=== PATIENT | female | born 1980 | race Caucasian/White ===

== ENCOUNTER 2016-06-21 09:39 | Emergency (ER) | payer OTHER ==
[2016-06-21] MEDS ORDERED: LORazepam 2 MG/ML DISP.SYRIN IV ONE (09:59)
--- NOTE | 2016-06-21 10:15 | ERNOTE ---
Neuro HPI ER Record Date of Service: 06/21/16 Presenting Symptoms: other Time Seen by Provider: 06/21/16 09:55 Source: EMS Exam Limitations: clinical condition Immunizations: IMMUNIZATION HX Immunizations Up to Date Yes History of Influenza Vaccine More Information Required Hx Pneumococcal Vaccination No Allergies/Adverse Reactions: Allergies Allergy/AdvReac Type Severity Reaction Status Date / Time fish oil Allergy Verified 06/21/16 10:01 ketorolac tromethamine Allergy Itching Verified 06/21/16 10:01 [From Toradol] topiramate [From Topamax] AdvReac Mild BLACK Verified 06/21/16 10:01 SPOTS SEEN tramadol AdvReac Mild RASH Verified 06/21/16 10:01 metoclopramide HCl AdvReac Other Verified 06/21/16 10:01 [From Reglan] omega 3 AdvReac Mild Itching Uncoded 06/21/16 10:01 Home Medications: HOME MEDICATIONS Levothyroxine Sodium [Synthroid] 125 mcg PO DAILY 12/05/14 [Last Taken 12/05/14 09:00] Ondansetron [Zofran Odt] 4 mg PO Q6H PRN #20 tab 10/03/15 [Last Taken Unknown] Albuterol Sulfate [Ventolin Hfa] 2 puff IH Q4H PRN 02/27/16 [Last Taken Unknown] Fluticasone Propionate [Flovent Hfa] 110 mcg IH BID 02/27/16 [Last Taken Unknown ] clonazePAM [Klonopin] 1 mg PO TID #90 tablet 06/21/16 [Last Taken Unknown] - History of Present Illness Narrative: This is a 35 y/o woman with a [facility] diagnosis of pseudoseizures, and POSSIBLE seizure disorder, who began having spells this morning at work, prompting her arrival by EMS in the [facility] ER, where she continues to have brief spells of altered consciousness and generalized body jerking. She, in her more awake moments, is asking for her bronchodilator inhaler, but her lungs are clear and her O2 sats normal. Onset: sudden onset Severity: moderate Context: other - Character of Deficits New weakness: Present: general (diffuse) Additional Deficits: Present: decrease ability to stand, decrease ability to walk Baseline Cognition: Present: poor alertness Baseline Gait: Present: walks w/o assistance Associated Symptoms: Reports: altered mental status, confused, decreased responsiveness Prior Treament: Reports: recently seen Review of Systems - Review of Systems Constitutional: Present: no symptoms reported - unable to provide - Patient's Past Medical History Patient History - Medical: Chronic Pain, Hypothyroidism, Migraines, Obesity, Seizures - seizures and pseudoseizures Patient History - Cardiac/Respiratory: No pertinent hx Patient History - Cancer: No Hx of Cancer Patient History - Surgical Procedures: Cholecystectomy, , Hysterectomy Patient History - Other: None LMP (Calendar): 08/30/14 - Family History Mother Family History - Medical: Anxiety, Diabetes Type 2, Depression, Renal Disease, Renal Failure Family History - Cardiac/Respiratory: Asthma Father Family History - Cardiac/Respiratory: Myocardial Infarction - Social History Living Situations: home Abuse History: No History of abuse Psych History: Hx of Anxiety Does anyone smoke in the home?: No Smoking Status: Current some day smoker Have you smoked in the past 12 months: Yes Do you dip or chew tobacco: No Initiate information on Smoking Cessation: Yes Alcohol Use: none Drug Use: none - Immunizations Immunizations Up to Date: Yes Hx Pneumococcal Vaccination: No History of Influenza Vaccine: More Information Required to Determine Physical Exam - Physical Exam General Appearance: Present: wd/wn, no apparent distress, other - impaired awakeness Eye Exam: Normal inspection: bilateral, PERRL: bilateral, EOMI: bilateral Ears, Nose, Throat: Present: normal ENT inspection Neck: Present: normal inspection Respiratory: Present: no respiratory distress, normal breath sounds Cardiovascular/Chest: Present: regular rate, rhythm, no murmur Gastrointestinal/Abdominal: Present: normal bowel sounds, nontender, nondistended, soft, no organomegaly Back Exam: Present: normal inspection Extremity Exam: Present: normal inspection, no edema Neurological Exam: Present: disoriented to person, disoriented to time, disoriented to place, disoriented to situation Skin Exam: Present: normal color, warm/dry ED Progress - Vital Signs Patient's Vital Signs:: I have reviewed the patient's vital signs. Vital Signs: Vital Signs 06/21/16 06/21/16 09:42 09:54 Temperature 36.6 C Pulse Rate 68 67 Respiratory 14 16 Rate Blood Pressure 136/90 O2 Sat by Pulse 100 Oximetry - Progress/Reassessment Chief Complaint: Seizure Activity Progress:: Improved Departure Clinical Impression: Pseudoseizures Migraine Qualifiers: Migraine type: without aura Status migrainosus presence: without status migrainosus Intractability: not intractable Qualified Code(s): G43.009 - Migraine without aura, not intractable, without status migrainosus - Departure Disposition: Home self-care Condition: Good Instructions: Nonepileptic Seizures, Migraine Headache, [id number] Additional Instructions: Follow up with Dr. Guadalupe in 1-2 weeks. Tomorrow increase your clonazepam to 1 mg three times daily Prescriptions: clonazePAM [Klonopin] 1 mg PO TID #90 tablet
[2016-06-21] MEDS ORDERED: LORazepam 2 MG/ML DISP.SYRIN ONE (10:29)
[2016-06-21] MEDS ORDERED: ONDANSETRON HCL/PF 2 MG/ML VIAL IV ONE (10:41)
[2016-06-21] MEDS ORDERED: ONDANSETRON HCL/PF 2 MG/ML VIAL ONE (10:42)
[2016-06-21] MEDS ORDERED: diphenhydrAMINE HCL 50 MG/ML VIAL IV ONE (11:10)
[2016-06-21] MEDS ORDERED: PROMETHAZINE HCL 25 MG in DEXTROSE 5 % IN WATER 50 ML IV ONE ×2 (11:10)
[2016-06-21] MEDS ORDERED: METHYLPREDNISOLONE SOD SUCC/PF 40 MG/ML VIAL IV ONE (11:10)
[2016-06-21] MEDS ORDERED: METHYLPREDNISOLONE ACETATE 80 MG/ML VIAL ONE (11:14)
[2016-06-21] MEDS ORDERED: diphenhydrAMINE HCL 50 MG/ML VIAL ONE (11:15)
[2016-06-21] MEDS ORDERED: METHYLPREDNISOLONE SOD SUCC/PF 40 MG/ML VIAL ONE (11:26)
[2016-06-21 12:58] VITALS: BP 133/83
== END 2016-06-21 12:56 | disposition home or self-care (01) ==
LOC: ER 09:39
DX: F44.5 Conversion disorder with seizures or convulsions (principal); G43.009 Migraine without aura, not intractable, without status migrainosus; F17.210 Nicotine dependence, cigarettes, uncomplicated

== ENCOUNTER 2016-06-23 09:47 | Emergency (ER) | payer OTHER ==
--- NOTE | 2016-06-23 10:28 | ERNOTE ---
Headache ER HPI - Narrative Date of Service: 06/21/16 - General Presenting Symptoms: headache Time Seen by Provider: 06/23/16 10:11 Source: patient, family - spouse Exam Limitations: no limitations - states took oxycodone at midnight for chronic back pain no other medications - Immun/Allergies/Home Medications Immunizations: IMMUNIZATION HX Immunizations Up to Date Yes History of Influenza Vaccine More Information Required Hx Pneumococcal Vaccination No Allergies/Adverse Reactions: Allergies fish oil Allergy (Verified 06/23/16 09:56) ketorolac tromethamine [From Toradol] Allergy (Verified 06/23/16 09:56) Itching topiramate [From Topamax] Adverse Reaction (Mild, Verified 06/23/16 09:56) BLACK SPOTS SEEN tramadol Adverse Reaction (Mild, Verified 06/23/16 09:56) RASH metoclopramide HCl [From Reglan] Adverse Reaction (Verified 06/23/16 09:56) Other omega 3 Adverse Reaction (Mild, Uncoded 06/23/16 09:56) Itching Home Medications: HOME MEDICATIONS Levothyroxine Sodium [Synthroid] 125 mcg PO DAILY 12/05/14 [Last Taken 12/05/14 09:00] Ondansetron [Zofran Odt] 4 mg PO Q6H PRN #20 tab 10/03/15 [Last Taken Unknown] Albuterol Sulfate [Ventolin Hfa] 2 puff IH Q4H PRN 02/27/16 [Last Taken Unknown] Fluticasone Propionate [Flovent Hfa] 110 mcg IH BID 02/27/16 [Last Taken Unknown ] clonazePAM [Klonopin] 1 mg PO TID #90 tablet 06/21/16 [Last Taken Unknown] - Pain Pain Score: 10 - History of Present Illness Narrative: Patient presents with acute on chronic headache, started shortly after seizure on Sat night, this has not gone away despite the clonezepam and oxycodone she has for headache, no associated vision changes, + nausea and feels very tired, walking from appt to parents house fell outside, no trauma to head and loc. Date (Duration): 06/21/16 Time (Timing): 23:55 Activity at onset: other - started after seizure on sat noc Timing of Headache: abrupt, still present Context Headache: Present: other - no head injury, fall but no loc on thursday Quality: Present: pressure Severity Maximum: Present: severe Severity-Currently: Present: severe Headache frequency: Present: frequent headaches Modifying Factors - (Improves): Reports: medication, other - states usually gets shot from PCP Modifying Factors - (Worsens): Reports: other - seizures, patient is diagnosed as having pseudoseizures treated with clonazepam per PCP Associated Symptoms: Reports: denies symptoms Exacerbated by:: Reports: movement Prior Treament: Reports: treated by physician - seen in ED on Sat by her pcp for seizure, here via EMS Review of Systems - Narrative Narrative: Patient seen in ED over this past weekend with recurrent pseudoseizures. - Review of Systems Constitutional: Present: See HPI, fatigue EYE: Present: no symptoms reported ENT: Present: no symptoms reported Respiratory: Present: no symptoms reported Cardiology: Present: no symptoms reported Gastrointestinal/Abdominal: Present: nausea, eating less Genitourinary: Present: no symptoms reported Musculoskeletal: Present: back pain - chronic low back pain, no paresthesia no change from chronic symptoms today Neurological: Present: headache Endocrine: Present: no symptoms reported, other - hx of hypothyroidism Psych: Present: anxiety, emotional problems, other - pseudoseizure per Neurologic evaluation - Narrative Narrative: past medical, family and social history reviewed, as well as medications and confirmed last doses. - Patient's Past Medical History Patient History - Medical: Chronic Pain, Hypothyroidism, Migraines, Obesity, Seizures Patient History - Cardiac/Respiratory: No pertinent hx Patient History - Cancer: No Hx of Cancer Patient History - Surgical Procedures: Cholecystectomy, , Hysterectomy Patient History - Other: None LMP (Calendar): 08/30/14 - Family History Mother Family History - Medical: Anxiety, Diabetes Type 2, Depression, Renal Disease, Renal Failure Family History - Cardiac/Respiratory: Asthma Father Family History - Cardiac/Respiratory: Myocardial Infarction - Social History Living Situations: home Abuse History: No History of abuse Psych History: Hx of Anxiety Does anyone smoke in the home?: No Alcohol Use: none Drug Use: none - Immunizations Immunizations Up to Date: Yes Hx Pneumococcal Vaccination: No History of Influenza Vaccine: More Information Required to Determine Physical Exam - Physical Exam General Appearance: Present: wd/wn, no apparent distress, lethargic Eye Exam: Normal inspection: bilateral, PERRL: bilateral - 3mm , EOMI: bilateral , Abnormal pupil: bilateral - constricted pupil , Photophobia: bilateral Ears, Nose, Throat: Present: normal ENT inspection, hearing grossly normal, normal pharynx Neck: Present: normal inspection, nontender, supple, full range of motion. Absent: lymphadenopathy (L) Respiratory: Present: no respiratory distress, normal breath sounds, no accessory muscle use, chest nontender, lungs clear Cardiovascular/Chest: Present: regular rate, rhythm, no murmur, normal peripheral pulses Peripheral Pulses: N=norm/S=strong/W=weak/B=bound/A=absent: Carotid (R): Normal , Carotid (L): Normal Gastrointestinal/Abdominal: Present: normal bowel sounds, nontender, nondistended, soft, no organomegaly Rectal Exam: Present: nontender, deferred Back Exam: Present: normal inspection, normal range of motion, no CVA tenderness , no vertebral tenderness Extremity Exam: Present: normal inspection, non-tender, no edema, normal range of motion Neurological Exam: Present: alert, oriented, normal mood/affect, no motor/ sensory deficits, contact lens manufacturer II-XII nml as tested. Absent: facial droop, motor weakness DTR: N=norm/NB=norm/brisk/A=abs/DD=dull/dimin/HC=hyperactive: Bicep (R): Normal , Bicep (L): Normal, Knee (R): Normal, Knee (L): Normal, Ankle (R): Normal, Ankle (L): Normal Skin Exam: Present: normal color, warm/dry Lymphatic Exam: Present: no adenopathy Pelvic Exam: Present: deferred ED Progress - Date and Time Seen: Date and Time: 06/23/16 13:08 Pain is now a 4 and improved, patient has no nausea, less lethargic, on exam: neck rom intact no stiffness. - Results and Orders Patient's Lab Results:: I have reviewed the patient's lab results. - Vital Signs Patient's Vital Signs:: I have reviewed the patient's vital signs. Vital Signs: Vital Signs 06/23/16 09:52 Temperature 36.6 C Pulse Rate 70 Respiratory 12 Rate Blood Pressure 112/82 O2 Sat by Pulse 97 Oximetry - Progress/Reassessment Chief Complaint: Headache Progress:: Re-examined Progress Note-Subjective: 06/23/16 13:12 tolerating sips of water - Transfer of Care Expected Disposition: Discharge - to home in stable condition Plan - Plan Plan: Patient is getting something to eat orally and stable for discharge. She requested note for work. she has missed 2 days of work. Patient was encouraged to drink more water continue to rest while home today. May return to work Thursday to rehydrate and resolve severe migraine jeong. Departure Clinical Impression: Hypovolemia dehydration Migraine Qualifiers: Migraine type: with aura Status migrainosus presence: with status migrainosus Intractability: not intractable Qualified Code(s): G43.101 - Migraine with aura , not intractable, with status migrainosus - Departure Disposition: Home self-care Condition: Good Instructions: Nausea, Adult, Migraine Headache, [id number], Form - Excuse from Work, School, or Physical Activity Additional Instructions: Excuse from work for illness Thursday 06/22, to Thursday06/24/2015 may return on Thursday Dr. Asher BARILLAS ED Physician Referrals: Salo Gonzales MD [Primary Care Provider] -
[2016-06-23] MEDS ORDERED: FAMOTIDINE 10 MG/ML VIAL IV ONE ×2 (10:30→10:39)
[2016-06-23] MEDS ORDERED: NORMAL SALINE 1,000 ML IV ONE (10:30)
[2016-06-23] MEDS ORDERED: KETOROLAC TROMETHAMINE 30 MG/ML VIAL IV ONE (10:31)
[2016-06-23] MEDS ORDERED: ONDANSETRON HCL/PF 2 MG/ML VIAL IV ONE (10:32)
[2016-06-23] MEDS ORDERED: KETOROLAC TROMETHAMINE 30 MG/ML VIAL ONE (10:38)
[2016-06-23] MEDS ORDERED: ONDANSETRON HCL/PF 2 MG/ML VIAL ONE (10:38)
[2016-06-23 10:50] LABS: Hematocrit 38.2 % (37.0-47.0); Hemoglobin 13.1 gm/dL (12.5-16.0); Mean Cell Volume 83.8 fl (78-100); Mean Corpuscular Hemoglobin 28.7 pg (27-31); Mean Corpuscular Hgb Conc 34.3 g/dl (32-36); Mean Platelet Volume 8.9 fl (6.0-9.5); Neutrophil # 3.6 K/mm3 (1.3-6.0); Neutrophil % 48.8 % (42-75.0); Platelet Count 185 K/mm3 (150-450); Red Blood Count 4.56 M/mm3 (4.2-5.4); Red Cell Distribution Width 12.6 % (11.5-14.0); White Blood Count 7.4 K/mm3 (4.0-10.5)
[2016-06-23 11:03] LABS: Albumin * 3.4 gm/dl (3.4-5.0); Anion Gap 9.8 mmol/L (6.8-13.8); BUN/Creatinine Ratio 22.9 (9.0-21.6); Bilirubin, Total 0.3 mg/dL (0.0-1.1); Ca. Corrected For Albumin 8.8 mg/dL (8.4-10.2); Calcium * 8.6 mg/dL (7.9-10.9); Carbon Dioxide 31.6 mmol/L (24-32.6); Potassium 3.4 mmol/L (3.4-4.6); Total Protein 6.7 gm/dL (6.2-8.2)
[2016-06-23 12:07] LABS: Cocaine Ur Negative (NEGATIVE); Urine Barbiturate Negative (NEGATIVE); Urine PCP Negative (NEGATIVE); Urine THC Negative (NEGATIVE)
[2016-06-23 12:08] LABS: Urine Benzodiazepines Positive (NEGATIVE); Urine Opiates Positive (NEGATIVE)
[2016-06-23 13:26] VITALS: BP 136/72
== END 2016-06-23 13:25 | disposition home or self-care (01) ==
LOC: ER 09:47
DX: E86.1 Hypovolemia (principal); G43.101 Migraine with aura, not intractable, with status migrainosus; E03.9 Hypothyroidism, unspecified; F41.9 Anxiety disorder, unspecified; R56.9 Unspecified convulsions
CPT/HCPCS: 36415; 80053; 85025; 96361; 96374; 96375; 99284; G0479

== ENCOUNTER 2016-09-07 14:49 | Emergency (ER) | payer OTHER ==
[2016-09-07] MEDS ORDERED: LORazepam 2 MG/ML DISP.SYRIN IV ONE ×2 (14:55→15:07)
[2016-09-07] MEDS ORDERED: NORMAL SALINE 1,000 ML IV ONE (14:56)
[2016-09-07] MEDS ORDERED: LORazepam 2 MG/ML DISP.SYRIN ONE (15:04)
--- OUTSIDE RECORDS SUMMARY | 2016-09-07 15:13 | XMS REPORT | Continuity of Care Document ---
:1980 Author Organization [facility] ([facility]) Address [address] [place] [address] Phone [phone] Care Team Providers Name Role Phone Salo Guadalupe Primary Care Provider [phone] Source Comments This disclosure is being made pursuant to the Care Everywhere program, applicable federal and state laws, and may not contain all informaitonavailable regarding this patient.[facility] ([facility]) Active Allergies and Adverse Reactions Allergen Noted Date Severity Reactions Comments Adhesive Tape Angioedema Aspirin Nausea & Vomiting Sealevel-3 Fatty Acids-Fish Oil 11/21/2014 Urticaria (Hives) Topiramate 12/06/2014 Unknown Tramadol 11/21/2014 Pruritus Current Medications Prescription Sig. Disp. Refills Start Date End Date Status levothyroxine 100 mcg Take 100 mcg by Active tablet mouth daily potassium chloride 10 Take 10 mEq by mouth Active mEq XR tablet 2 times daily fluticasone (FLOVENT Use 2 Puffs by Active HFA 110) inhaler inhalation every 12 hours albuterol 90 Use 2 Puffs by Active mcg/Actuation inhaler inhalation every 6 hours as needed OXcarbazepine Take 1.5 Tabs (450 90 Tab 11 11/22/2014 Active (TRILEPTAL) 300 mg mg total) by mouth 2 tablet times daily promethazine 25 mg Take 25 mg by mouth Active tablet every 4 hours as needed ibuprofen PO Take 200 mg by mouth Active every 6 hours as needed furosemide 20 mg tablet Take 20 mg by mouth Active 2 times daily Active Problems Problem Noted Date Morbid obesity 04/16/2015 Spells 01/27/2015 Paroxysmal spells 12/13/2014 Last Assessment & Plan: 03/08/2015 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 NEADs are a type of attack that anyone can have. During these attacks the body is having a very real reaction. NEAD can look like epileptic seizures. The difference is that there is not electrical brain activity during NEADs that is related to epilepsy. Every person may have different symptoms. Common names for NEAD include: psychogenic non-epileptic events, pseudoseizures and psychogenic spells. What causes NEAD? Trauma Stress Anxiety How are NEADs Diagnosed? The most common way to diagnose NEAD is by Video Electroencephalogram (VEEG) monitoring. The patient is hooked up to special equipment. Brain wave activity is recorded as an attack occurs to watch for electrical changes. Epilepsy specialists may also be able to tell what kind of attacks people go through. Sometimes a diagnosis can be made from seeing an attack or from a witnesses description. Home videos or photos of a typical attack can also help with diagnosis. How is NEAD Treated? The current treatment for NEAD is psychological therapy. Specialists trained in treating people experiencing NEAD help you. The purpose of therapy is to help you understand the reasons behind your sym ptoms. The therapists will teach you ways to help you control the attacks. Many people find that their attacks stop or are reduced with therapy. This can be a long process for you. It can take weeks or months before your attacks improve. A Few Facts Women tend to struggle with NEAD more than men. NEAD does not cause damage to the brain. About 80% of people with NEAD have had traumatic experiences in their past. NEAD cannot be cured by anti-epileptic medicine. NEAD episodes are sometimes confused with panic attacks. Many have been told they have a seizure disorder. Some Quick Tips in Managing Non-Epileptic Attack Disorder Make an appointment with a Neuropsychological Rehabilitation Counselor. They can help you identify some possible triggers of your attacks. Helping you find ways to deal with these attacks is important. Learn to get away from the mindset of being out of control. The good news is that you do not have a serious disorder like epilepsy. NEAD can be managed and sometimes even stopped. Believing t he disorder is beyond your control will prolong your struggle with NEAD. Pay attention to your warning signs of NEAD. Many people describe dull headaches, mild dizziness or feeling out of it. Rarely does this type of attack start without warning. Most people ignore the warning signs. Start by paying closer attention to your body and your thoughts. It can help to keep a logbook of the events. Write down how you felt before, during and after an episode. Yo u and your therapist can develop a plan to better manage these attacks. Include these in your logbook: Time and date of the NEAD Warning signs prior to the attack Length of the event Effect (both positive and negative) of the attack Thoughts linked to the attack Anything that shortened, managed or stopped the attack Stay busy. Many people have NEAD when they have down time. Your body and brain has the chance to take over during down time. Keep a to-do list of things that do not cause high anxiety. These can be tasks that you enjoy or other things, such as house chores. Instead of allowing a seizure to proceed, try distracting yourself with a new task. Exercise every day. Get at least 30 minutes of exercise every day. Getting your heart rate up above resting rate is best. It can help to reduce your attacks. Exercise releases endorphins to help yo u reduce anxiety. Endorphins are the feel good chemicals in the brain. Exercise physically tires your body. This helps you get better periods of rest. People who get more rest are able to manage stress and anxiety better. This much exercise may seem very difficult, but it is worth it. Use diaphragmatic breathing. Breathe in through your nose for 8 seconds, then out through the mouth for 8 seconds. This type of breathing uses different parts of the brain to relax the body. Diaphr agmatic breathing should be difficult and slightly uncomfortable. You should use this daily whether you have an attack or not. Use this breathing when you have warning signs of an attack or during an attack. This can help you better control the attack. Grounding techniques can also be helpful for NEAD. Talk to your therapist about ground techniques that may work best for you. Manage your diet. Certain foods and products could increase your anxiety or depress your mood. Caffeine, nicotine and foods high in trans fats or sugar increase anxiety and depression. Make sure yo u eat a healthy diet. Eat foods that are rich in nutrients, such as fruits, vegetables and lean proteins. Stay well hydrated by drinking plenty of water. Manage your mood. Your therapist can help you find ways to deal with your stress levels. Automatic thinking can affect your whole mood. Using relaxing techniques such as progressive muscle relaxati on and visualization can also help. People rarely have NEADs when things are going really well for them. Next Steps: Contact your insurance company. The number is on the back of your insurance card. The insurance company will tell you what treatment options your policy covers. If you have questions please call us: Department of Neurology (8:00 a.m. to 5:00 p.m. Thursday-Thursday) at [phone] After 5:00 p.m., weekends or holidays, call [phone] and ask for the Neurologist plastering contractor. You may also use the 24 hour Toll-free number at . Instruction Status: Reviewed with patient/caregiver and understanding verbalized. Copy provided. As she lives in [place], I have suggested she talk to her PMD about a referral to psychology locally. I have recommended she show NEAD handout to her PMD and the mental health professional I would be happy to treat for possible epilepsy. Also, if a different type of spells appear, I have asked her SO to video-tape and call us. If you have questions please call us: Department of Neurology Epilepsy Program(8:00 a.m. to 5:00 p.m. Thursday-Thursday) at [phone] After 5:00 p.m., weekends or holidays, call [phone] and ask for the Neurologist plastering contractor. You may also use the 24 hour Toll-free number at . Pseudoseizure 12/09/2014 Cognitive disorder 12/08/2014 Overview: Likely chronic Seizure disorder 12/06/2014 Encephalopathy 12/06/2014 Sleep disturbance, unspecified 11/21/2014 Last Assessment & Plan: 11/21/2014 Have discussed possibility of sleep apnea given her sleep disturbance, weight, and possible snoring. Have suggested a sleep study to be done locally. Unspecified epilepsy without mention of intractable epilepsy 01/12/2006 Last Assessment & Plan: 11/21/[address] Servin and I are not able to specify her seizure classification. A 3 day video-EEG was normal. The spells are tooo infrequent to capture on video. 1. Discussed options such as extended release tegretol. Discussed alf side effects of tegretol such as hastening osteoporosis. She is on vitamin D and calcium Discussed trileptal (still risk of osteoporosis) or lamotrgine. Lamotrigine and tegretol have negative interactions. This would not be as severe on trilptal. Could swithch to trileptal and then sunshine otrgine.. Lamotrigine would be started slowly to decrease risk of rash. 2. On tegretol 800 mg per day. The switch to trileptal would be 600 mg twice a day. Will switch to triltal 600 mg twice a day at bedtime. 3. In two weeks if going well start lamotrigine ascension. She will call us and let us know how she is doing of trileptal. She will not drive the remainder of the week as transistioning to trileptal. Lamotrigine would be started as Will need to re-start lamotrigine slowily to avoid Rash Start Morning evening Week 1 25 mg None Week 2 25 mg 25 mg Week 3 50 mg 25 mg Week 4 50 mg 50 mg Week 5 75 mg 50 mg Week 6 75 mg 75 mg Week 7 100 mg 75 mg Week 8 100 mg 100 mg Week 9 150 mg 100 mg Week 10 150 mg 150 mg Continue 150 mg twice day She would stay on trileptal as transistion to lamotrigine. Call us once on lamotrigine 150 mg po bid and we will check serum level As coming off trileptal - no driving. 4. Will \\check tegretol level now (did not take AM dose). Daughter drove If you have questions please call us: Department of Neurology Epilepsy Program(8:00 a.m. to 5:00 p.m. Thursday-Thursday) at [phone] After 5:00 p.m., weekends or holidays, call [phone] and ask for the Neurologist plastering contractor. You may also use the 24 hour Toll-free number at . Social History Tobacco Use Types Packs/Day Years Used Date Current Some Day Smoker Cigarettes Quit: 11/21/2009 Smokeless Tobacco: Never Used Tobacco Cessation:Counseling Given: Yes Comments:1/day Alcohol Use Drinks/Week oz/Week Comments No Last Filed Vital Signs Vital Sign Reading Time Taken Blood Pressure 101/63 04/17/2015 12:26 AM [employer] Pulse 87 04/17/2015 12:26 AM [employer] Temperature 36.9 C (98.4 F) 04/16/2015 8:34 PM [employer] Respiratory Rate 14 04/17/2015 12:26 AM [employer] Height 1.499 m (4' 11.02") 03/08/2015 1:37 PM CDT Weight 89.9 kg (198 lb 3.1 oz) 03/08/2015 1:37 PM CDT Body Mass Index 40.01 03/08/2015 1:37 PM CDT Oxygen Saturation 97% 04/17/2015 12:26 AM [employer] Plan of Care Health Maintenance Due Date Last Done Comments Hepatitis B Vaccine (1 of 3 - Primary Series) 1980 Tdap Vaccine 1989 Lipid Disorder Screening 1996 MMR Vaccine 1996 Td Vaccine 1996 Pneumococcal Vaccine (1 of 1 - PPSV23) 1997 Cervical Cancer Screening 2008 12/31/2001 Influenza Vaccine: Seasonal (#1) 12/17/2015 Results from Last 3 Months Not on file
[2016-09-07 15:17] LABS: Hematocrit 36.8 % (37.0-47.0); Hemoglobin 12.5 gm/dL (12.5-16.0); Mean Corpuscular Hemoglobin 28.5 pg (27-31); Mean Platelet Volume 9.4 fl (6.0-9.5); Neutrophil # 3.5 K/mm3 (1.3-6.0); Neutrophil % 54.6 % (42-75.0); Platelet Count 206 K/mm3 (150-450); Red Blood Count 4.38 M/mm3 (4.2-5.4); Red Cell Distribution Width 13.2 % (11.5-14.0); White Blood Count 6.4 K/mm3 (4.0-10.5)
[2016-09-07 15:33] LABS: Albumin * 4.1 gm/dl (3.4-5.0); Anion Gap 12.6 mmol/L (6.8-13.8); BUN/Creatinine Ratio 16.3 (9.0-21.6); Bilirubin, Total 0.5 mg/dL (0.0-1.1); Ca. Corrected For Albumin 8.4 mg/dL (8.4-10.2); Calcium * 8.8 mg/dL (7.9-10.9); Carbon Dioxide 29.9 mmol/L (24-32.6); Potassium 3.5 mmol/L (3.4-4.6); Total Protein 7.3 gm/dL (6.2-8.2)
[2016-09-07 15:42] LABS: Urine Appearance Clear; Urine Bacteria None Seen; Urine Bilirubin Negative (NEGATIVE); Urine Blood Negative /ul (NEGATIVE); Urine Color Yellow; Urine Ketone Negative (NEGATIVE); Urine Nitrite Negative (NEGATIVE); Urine Protein Negative (NEGATIVE); Urine RBC None Seen /hpf (0-5); Urine Specific Gravity 1.015 SP.GR. (1.005-1.010); Urine Urobilinogen Normal (NORMAL); Urine WBC 0-5 /hpf (0-5)
--- NOTE | 2016-09-07 17:03 | ERNOTE ---
Neuro HPI ER Record Date of Service: 09/07/16 Presenting Symptoms: other - seizure like activity Time Seen by Provider: 09/07/16 14:54 Source: patient, EMS Exam Limitations: no limitations Immunizations: IMMUNIZATION HX Immunizations Up to Date Yes History of Influenza Vaccine More Information Required Hx Pneumococcal Vaccination No Allergies/Adverse Reactions: Allergies Allergy/AdvReac Type Severity Reaction Status Date / Time fish oil Allergy Verified 06/23/16 09:56 ketorolac tromethamine Allergy Itching Verified 06/23/16 09:56 [From Toradol] topiramate [From Topamax] AdvReac Mild BLACK Verified 06/23/16 09:56 SPOTS SEEN tramadol AdvReac Mild RASH Verified 06/23/16 09:56 metoclopramide HCl AdvReac Other Verified 06/23/16 09:56 [From Reglan] omega 3 AdvReac Mild Itching Uncoded 06/23/16 09:56 Home Medications: HOME MEDICATIONS Levothyroxine Sodium [Synthroid] 125 mcg PO DAILY 12/05/14 [Last Taken 12/05/14 09:00] Ondansetron [Zofran Odt] 4 mg PO Q6H PRN #20 tab 10/03/15 [Last Taken Unknown] Albuterol Sulfate [Ventolin Hfa] 2 puff IH Q4H PRN 02/27/16 [Last Taken Unknown] Fluticasone Propionate [Flovent Hfa] 110 mcg IH BID 02/27/16 [Last Taken Unknown ] clonazePAM [Klonopin] 1 mg PO TID #90 tablet 06/21/16 [Last Taken Unknown] - History of Present Illness Narrative: patient presents to the ED from work. She relates that this am she fell in the shower and hit the back of her head. She relates she did not lose consciousness but was dazed. She went to work and had recurrent bouts of seizure-like activity for 30 minutes so EMS was called. EMS noted one bout of this activity en route which resolved spontaneously. She denies focal N/T/W. No CP or SOB. She is seen at [facility] by neurology. Mild neck pain. Onset: intermittent Context: injury - head - Character of Deficits New weakness: Present: other - none Altered sensation: Present: other - none Additional Deficits: Absent: weakness Baseline Cognition: Present: alert, oriented x 4 Associated Symptoms: Denies: fever/chills, chest pain Prior Treament: Denies: recently seen Review of Systems - Review of Systems Constitutional: Absent: fever EYE: Absent: vision changes ENT: Present: no symptoms reported Respiratory: Absent: shortness of breath Cardiology: Absent: chest pain Gastrointestinal/Abdominal: Absent: abdominal pain Genitourinary: Absent: dysuria Musculoskeletal: Present: other - mild neck pain Skin: Present: other - small cut on her lag today from shaving her legs Neurological: Absent: weakness All Other Systems: All systems neg except as marked - Patient's Past Medical History Patient History - Medical: Anxiety, Bipolar, Chronic Pain, Hypothyroidism, Migraines, Obesity, Seizures, Other Patient History - Cardiac/Respiratory: Asthma Patient History - Cancer: No Hx of Cancer Patient History - Surgical Procedures: Cholecystectomy, , D & C, Hysterectomy, Other Patient History - Other: None LMP (females 10-50): other LMP (Calendar): 08/30/14 - Family History Mother Family History - Medical: Anxiety, Diabetes Type 2, Depression, Renal Disease, Renal Failure Family History - Cardiac/Respiratory: Asthma Father Family History - Cardiac/Respiratory: Myocardial Infarction - Social History Living Situations: home Abuse History: No History of abuse Psych History: Hx of Anxiety Does anyone smoke in the home?: No Alcohol Use: none Drug Use: none - Immunizations Immunizations Up to Date: Yes Hx Pneumococcal Vaccination: No History of Influenza Vaccine: More Information Required to Determine Physical Exam - Physical Exam General Appearance: Present: alert, no apparent distress Eye Exam: Normal inspection: bilateral, PERRL: bilateral Ears, Nose, Throat: Present: normal ENT inspection Neck: Present: other - After CT negative, paraspinal muscular tenderness, no localizing point vertebrtal tenderness or suggestion of ligamentous injury, cleared from c-collar after negative CT. Respiratory: Present: no respiratory distress, normal breath sounds Cardiovascular/Chest: Present: regular rate, rhythm Gastrointestinal/Abdominal: Present: normal bowel sounds, nontender, soft. 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 Absent: motor weakness Skin Exam: Absent: skin rash Maben Coma Scale - Assess Eye Opening: Spontaneous Motor: Obeys Commands Verbal: Oriented - Total Coma Scale Total: 15 ED Progress - Results and Orders Patient's Lab Results:: I have reviewed the patient's lab results. - Vital Signs Patient's Vital Signs:: I have reviewed the patient's vital signs. Vital Signs: Vital Signs 09/07/16 09/07/16 09/07/16 14:56 15:15 16:39 Pulse Rate 82 85 89 Respiratory 21 H 21 H 18 Rate Blood Pressure 116/78 123/83 123/85 O2 Sat by Pulse 99 100 94 Oximetry 09/07/16 16:46 Pulse Rate 79 Respiratory 20 Rate Blood Pressure 110/71 O2 Sat by Pulse 97 Oximetry - CT/Ultrasound CT/Ultrasound Narrative: Ct cervical spine and CT head reviewed, radiology report reviewed, negative. - Progress/Reassessment Chief Complaint: Seizure Activity Progress Note-Subjective: 09/07/16 17:01 Ptient had 5 episodes of seizure-like activity. resolved within 1 minute. No acute focal weakness. NIH stroke scale 0. D/E Dr Roldan at [facility], he recommends transfer to [facility] for EEG monitoring. Patient agreeable. No active seizure activity at time of transfer. Departure Clinical Impression: Seizure-like activity - Departure Disposition: [facility] Condition: Stable
[2016-09-07 17:41] VITALS: BP 103/67
== END 2016-09-07 17:48 | disposition short-term general hospital (02) ==
LOC: ER 14:49
DX: R56.9 Unspecified convulsions (principal); W18.2XXA Fall in (into) shower or empty bathtub, initial encounter; Y92.002 Bathroom of unspecified non-institutional (private) residence as the place of occurrence of the external cause

== ENCOUNTER 2016-09-13 13:22 | Emergency (ER) | payer OTHER ==
--- OUTSIDE RECORDS SUMMARY | 2016-09-13 14:05 | XMS REPORT | Continuity of Care Document ---
:1980 Author Organization [facility] ([facility]) Address [address] [place] [address] Phone [phone] Care Team Providers Name Role Phone Salo Guadalupe Primary Care Provider [phone] Source Comments This disclosure is being made pursuant to the Care Everywhere program, applicable federal and state laws, and may not contain all informaitonavailable regarding this patient.[facility] ([facility]) Active Allergies and Adverse Reactions Allergen Noted Date Severity Reactions Comments Adhesive Tape Angioedema Aspirin Nausea & Vomiting [place]-3 Fatty Acids-Fish Oil 11/21/2014 Urticaria (Hives) Topiramate 12/06/2014 Unknown Tramadol 11/21/2014 Pruritus Current Medications Prescription Sig. Disp. Refills Start Date End Date Status levothyroxine 100 Take 100 mcg by Active mcg tablet mouth daily fluticasone (FLOVENT Use 2 Puffs by Active HFA 110) inhaler inhalation every 12 hours albuterol 90 Use 2 Puffs by Active mcg/Actuation inhalation every inhaler 6 hours as needed ibuprofen PO Take 200 mg by Active mouth every 6 hours as needed furosemide 20 mg Take 20 mg by Active tablet mouth 2 times daily potassium chloride Take 10 mEq by 09/08/2016 Discontinued 10 mEq XR tablet mouth 2 times daily OXcarbazepine Take 1.5 Tabs 90 Tab 11 11/22/2014 09/08/2016 Discontinued (TRILEPTAL) 300 mg (450 mg total) tablet by mouth 2 times daily promethazine 25 mg Take 25 mg by 09/08/2016 Discontinued tablet mouth every 4 hours as needed Active Problems Problem Noted Date Morbid obesity [...] (8:00 a.m. to 5:00 p.m. Thursday-Thursday) at [phone] After 5:00 p.m., weekends or holidays, call [phone] and ask for the Neurologist welder production line arc. You may also use the 24 hour Toll-free number at . Instruction Status: Reviewed with patient/caregiver and understanding verbalized. Copy provided. As she lives in [place], I have suggested she talk to her [...] Program(8:00 a.m. to 5:00 p.m. Thursday-Thursday) at [phone] After 5:00 p.m., weekends or holidays, call [phone] and ask for the Neurologist welder production line arc. You may also use the 24 hour Toll-free number at . 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 Discussed usp side effects of tegretol such as hastening [...] Program(8:00 a.m. to 5:00 p.m. Thursday-Thursday) at [phone] After 5:00 p.m., weekends or holidays, call [phone] and ask for the Neurologist welder production line arc. You may also use the 24 hour Toll-free number at . 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 09/09/2016 Telephone Neurology Clementina Rizvi Chief Comp: MD Tata Appointment Info 09/07/2016 - Hospital General Care Ming Roldan Dx: Unspecified 09/08/2016 Encounter Inpatient - Adult MD Otilio epilepsy without mention of intractable epilepsy (Primary Dx) 09/07/2016 Orders/Notes Neurology Ming Roldan MD 09/07/2016 Telephone Neurology Ming Roldan Chief Comp: MD Otilio Consultation Immunizations Name Dates Previously Given Next Due Influenza, PF 02/07/2015 Novel Influenza H1N1 03/20/2009 Td, adsorbed 07/11/2015 Tdap 02/06/2016,02/07/2015,02/02/2011 Social History Tobacco Use Types Packs/Day Years Used Date Current Some Day Smoker Cigarettes Quit: 11/21/2009 Smokeless Tobacco: Never Used Tobacco Cessation:Counseling Given: Yes Comments:1/day Alcohol Use Drinks/Week oz/Week Comments No Last Filed Vital Signs Vital Sign Reading Time Taken Blood Pressure 90/70 09/08/2016 8:06 AM CDT Pulse 56 09/08/2016 8:06 AM CDT Temperature 36.1 C (97 F) 09/08/2016 8:06 AM CDT Respiratory Rate 16 09/08/2016 8:06 AM CDT Height 1.499 m (4' 11") 09/07/2016 7:30 PM CDT Weight 72 kg (158 lb 11.7 oz) 09/07/2016 7:30 PM CDT Body Mass Index 32.04 09/07/2016 7:30 PM CDT Oxygen Saturation 94% 09/08/2016 8:06 AM CDT Plan of Care Health Maintenance Due Date Last Done Comments Hepatitis B Vaccine (1 of 3 1978 - Primary Series) Lipid Disorder Screening 1996 MMR Vaccine 1996 Pneumococcal Vaccine (1 of 1 1997 - PPSV23) Cervical Cancer Screening 2008 12/31/2001 Influenza Vaccine: Seasonal 12/16/2016 02/07/2015 (Season Ended) Td Vaccine 02/05/2026 02/06/2016, Additional history exists 07/11/2015, 02/07/2015 Tdap Vaccine Completed 02/06/2016, 02/07/2015, 02/02/2011 Results from Last 3 Months EMU - VIDEO EEG MONITORING (2BTEP / SFCH L9) (09/09/2016 3:51 PM) Edie Castro MD 09/09/20163:51 PM Video-Electroencephalography (VEEG) Report [facility] Epilepsy Monitoring Unit Requested by Dr. Nieto Procedure Name of study: Inpatient video-EEG Electrodes: Scalp 10-20 Start Date/Time: 09/08/2016 at 01:53 End Date/Time: 09/08/2016 at 1415 History Patient with history of non-epileptic spells who presents after multiple events. Medications Clonazepam, gabapentin, Divalproex Daily Reports Day 1 Interval Change: none Background: The awake background consists of diffuse excess symmetric beta activity without clear posterior alpha frequencies. Symmetric sleep activity is seen. Interictal Discharges: none Events: 2315 - Video event prior to electrode hookup.The patient clinically appears to be sleeping and develops gradual onset of mild whole body shaking but with [id number] head movement and eyes remain closed. Shaking is irregular and at times asynchronous between upper/lower limbs and right vs left, also varying in amplitude and frequency. She is unresponsive to testing. The shaking stops suddenly after 90 seconds.She slowly begins to respond to questions at this time. Stalin Beaulieu Neurology Fellow Staff: Edie Rodriguez MD Summary This continuous video EEG captured a clinical spell of unresponsiveness and irregular body shaking varying site/ampliutde and frequency, prior to EEG leads were placed. However, interictal EEG once leads were on, did not show any epileptiform discharges or focal slowing. Clinical Interpretation No interictal evidence for epilepsy found. Semiology of single clinical event on video suggestive of non-epileptic attack, psychogenic. Edie Rodriguez MD Staff physician, [place] [facility], Department of Neurology, [facility] MICROSCOPIC URINALYSIS (09/08/2016 10:49 AM) Component Value Range White Blood Cells, Urine <1 0-5 /HPF Red Blood Cells, Urine <1 0-2 /HPF Squamous Epithelial Cells, Urine 10 <=10 /LPF Mucous-Urine Rare None, Rare Specimen Urine URINALYSIS WITH REFLEX CULTURE (09/08/2016 10:49 AM) Component Value Range Color, Urine Yellow Straw, Pale Yellow, Yellow, Clear, None Clarity, Urine Clear Clear pH, Urine 5.0 <9.0 Spec [place], Urine 1.015 1.000-1.030 Glucose, Urine Negative Negative Blood, Urine Negative Negative Ketones, Urine Negative Negative Protein, Urine Negative Negative Urobilinogen, Urine Normal Normal Bilirubin, Urine Negative Negative Leukocyte Esterase, Urine Negative Negative Nitrite, Urine Negative Negative Specimen Urine URINALYSIS WITH REFLEXED CULTURE AND MICROSCOPIC EXAM (09/08/2016 10:49 AM) Specimen Culture - Urine, Midstream clean catch Narrative The following orders were created for panel order URINALYSIS WITH REFLEXED CULTURE AND MICROSCOPIC EXAM. Procedure Abnormality Status --------- ------ URINALYSIS WITH REFLEX C...[[id number]]Normal Final result MICROSCOPIC URINALYSIS[[id number]] Normal Final result URINE CULTURE, REFLEXED[[id number]] Please view results for these tests on the individual orders. BASIC METABOLIC PANEL W/ CALCIUM (CHEM 8) (09/08/2016 10:28 AM)Only the most recent of2 resultswithin the time period is included. Component Value Range Sodium 139 135-145 mEq/L Potassium 3.6 3.5-5.0 mEq/L Chloride 104 95-107 mEq/L CO2 26 22-29 mEq/L BUN 14 10-20 mg/dL Creatinine 0.8Comment: 0.5-1.0 mg/dL Creatinine switched to enzymatic method on 09/24/2010.GFR equation switched to IDMS-traceable MDRD equation on 09/24/2010. Calculated GFR values are not valid in clinical settings where serum creatinine is changing. Glucose 86Comment: 65-99 mg/dL The Expert Committee on the Diagnosis and Classification of Diabetes has defined impaired fasting glucose as greater than or equal to 100 mg/dL but less than 126 mg/dL.(Diabetes Care 28 (Suppl 1)S41,2005) Calcium 8.3(L) 8.5-10.5 mg/dL Anion Gap 9 mEq/L Calculated GFR 81 >60 mL/min/1.73 m2 Specimen Blood CBC (COMPLETE BLOOD COUNT) (09/08/2016 10:28 AM)Only the most recent of2 resultswithin the time period is included. Component Value Range WBC Count 5.2 3.7-10.5 K/MM3 RBC Count 4.17 4.00-5.20 M/MM3 Hemoglobin 12.0 11.9-15.5 g/dL Hematocrit 35 35-47 % MCV (Mean Corpuscular Volume) 85 82-99 FL MCH (Mean Corpuscular Hemoglobin) 29 25-35 PG MCHC (Mean Corpuscular Hemoglobin Concentration) 34 32-36 % Platelet Count 172 150-400 K/MM3 MPV (Mean Platelet Volume) 9.9 9.4-12.3 FL RBC Dist Width-STD 41.1 36.4-46.3 FL RBC Distrib Width 13.3 9.0-14.5 % Nucleated RBC 0 /100 WBC Specimen Whole Blood HEPATIC FUNCTION PANEL (09/08/2016 12:17 AM) Component Value Range Albumin 3.8 3.4-4.8 g/dL ALP 48 35-104 U/L Bilirubin Total 0.3 <=1.2 mg/dL Bilirubin, Direct <0.2 0.0-0.2 mg/dL AST 17Comment: 0-32 U/L Adult reference ranges updated on 04/12/13 at 830am ALT 15Comment: 0-33 U/L The upper limit of normal for alanine aminotransferase (ALT) reference ranges for adults is controversial with some authorities recommending limit as low as 30 U/L for males and 19 U/L for females. Th ere is increased incidence of subclinical liver disease (e.g., early steatohepatitis) in patients with ALT values in the range of 31-41 U/L for males and 20-33 U/L for females. ALT values should alway s be interpreted in conjunction with clinical history, physical examination findings, and, if applicable, data from other diagnostic tests. Total Protein 6.1 6.0-8.0 g/dL Specimen Blood CREATINE KINASE (09/08/2016 12:17 AM) Component Value Range Creatine Kinase 50 26-192 U/L Specimen Blood LACTIC ACID, WHOLE BLOOD ([facility]) (09/08/2016 12:17 AM) Component Value Range Lactic Acid, Whole Blood 1.0Comment: 0.5-2.0 mEq/L Glycolate, the principle toxic metabolite of ethylene glycol, can cause artifactual elevation of measured lactate. Specimen Whole Blood VALPROIC ACID DRUG LEVEL (09/08/2016 12:17 AM) Component Value Range Valproic Acid Drug Level 15.2(L)Comment: 50.0-100.0 g/mL Therapeutic Range:50-100 g/mL Toxic:>100 g/mL Specimen Blood OXCARBAZEPINE METABOLITE (09/08/2016 12:17 AM) Component Value Range Oxcarb Metabolite <1(L)Comment: 3-35 ug/mL INTERPRETIVE INFORMATION: Oxcarbazepine Therapeutic range: 3-35 ug/mL. Toxic: Greater than 40 ug/mL This test measures monohydroxyoxcarbazepine (MHD). Adverse effects may include dizziness, fatigue, nausea, headache, somnolence, ataxia and tremor. Performed by [facility], [address] [place] [id number] [email or web address], Darnell Hayden MD, Lab. Director Specimen Blood Narrative Specimen Source: Specimen Start Date:
[2016-09-13 14:07] LABS: Hematocrit 38.7 % (37.0-47.0); Hemoglobin 13.2 gm/dL (12.5-16.0); Mean Cell Volume 83.8 fl (78-100); Mean Corpuscular Hemoglobin 28.6 pg (27-31); Mean Corpuscular Hgb Conc 34.1 g/dl (32-36); Mean Platelet Volume 9.6 fl (6.0-9.5); Neutrophil # 3.4 K/mm3 (1.3-6.0); Neutrophil % 52.3 % (42-75.0); Platelet Count 219 K/mm3 (150-450); Red Blood Count 4.62 M/mm3 (4.2-5.4); Red Cell Distribution Width 13.2 % (11.5-14.0); White Blood Count 6.5 K/mm3 (4.0-10.5)
[2016-09-13 14:32] LABS: ALT 24 U/L (19-67); AST 18 U/L (0-48); Albumin * 4.2 gm/dl (3.4-5.0); Alkaline Phosphatase * 59 U/L (50-170); Anion Gap 12.2 mmol/L (6.8-13.8); BUN/Creatinine Ratio 17.6 (9.0-21.6); Bilirubin, Total 0.7 mg/dL (0.0-1.1); Blood Urea Nitrogen 15 mg/dL (3-23); Ca. Corrected For Albumin 8.8 mg/dL (8.4-10.2); Calcium * 9.3 mg/dL (7.9-10.9); Carbon Dioxide 29.5 mmol/L (24-32.6); Chloride 103 mmol/L (97-106); Glucose * 95 mg/dL (70-110); Potassium 3.7 mmol/L (3.4-4.6); Sodium 141 mmol/L (132-142); TSH * 1.487 uIU/mL (0.358-3.74); Total Protein 7.8 gm/dL (6.2-8.2); Troponin I Less than 0.017 ng/ml (0.00-0.10)
[2016-09-13 14:37] LABS: Urine Bilirubin Negative (NEGATIVE); Urine Blood Negative /ul (NEGATIVE); Urine Ketone Negative (NEGATIVE); Urine Nitrite Negative (NEGATIVE); Urine Protein Negative (NEGATIVE); Urine Specific Gravity <=1.005 SP.GR. (1.005-1.010); Urine Urobilinogen Normal (NORMAL)
[2016-09-13 14:44] LABS: Urine Appearance Clear; Urine Bacteria None Seen; Urine Color Yellow; Urine RBC None Seen /hpf (0-5); Urine WBC None Seen /hpf (0-5)
--- NOTE | 2016-09-13 14:48 | ERNOTE ---
Neuro HPI ER Record Date of Service: 09/13/16 Presenting Symptoms: weakness, other - seizures Time Seen by Provider: 09/13/16 13:42 Source: patient Exam Limitations: no limitations Immunizations: IMMUNIZATION HX Immunizations Up to Date Yes History of Influenza Vaccine More Information Required Hx Pneumococcal Vaccination No Allergies/Adverse Reactions: Allergies Allergy/AdvReac Type Severity Reaction Status Date / Time fish oil Allergy Verified 09/13/16 13:30 ketorolac tromethamine Allergy Itching Verified 09/13/16 13:30 [From Toradol] topiramate [From Topamax] AdvReac Mild BLACK Verified 09/13/16 13:30 SPOTS SEEN tramadol AdvReac Mild RASH Verified 09/13/16 13:30 metoclopramide HCl AdvReac Other Verified 09/13/16 13:30 [From Reglan] omega 3 AdvReac Mild Itching Uncoded 09/13/16 13:30 Home Medications: HOME MEDICATIONS Levothyroxine Sodium [Synthroid] 125 mcg PO DAILY 12/05/14 [Last Taken 12/05/14 09:00] clonazePAM [Klonopin] 1 mg PO TID #90 tablet 06/21/16 [Last Taken Unknown] Divalproex Sodium [Depakote] 250 mg PO HS 09/13/16 [Last Taken Unknown] Furosemide [Lasix] 20 mg PO DAILY 09/13/16 [Last Taken Unknown] Gabapentin [Neurontin] 600 mg PO QID 09/13/16 [Last Taken Unknown] Potassium Chloride [K-Dur] 20 meq PO DAILY 09/13/16 [Last Taken Unknown] Sertraline HCl [Zoloft] 50 mg PO HS 09/13/16 [Last Taken Unknown] - History of Present Illness Narrative: Pt. comes in with c/o seizure activity since noon. Pt. staes taht she was dizzy and lightheaded for two days and then this morning started to have seizure activity. Pt. states that she had two seizures at home just prior to arrival. Pt. denies any recent illness, SOB, CP, NVD, fever, fall, alleviating factors or aggravating factors. Pt. is not currently on medications for seizures but takes seizure medications for her Bipolar disorder. Review of Systems - Review of Systems Constitutional: Present: no symptoms reported. Absent: recent illness, fever, chills, weakness, fatigue, malaise EYE: Present: no symptoms reported ENT: Present: no symptoms reported Respiratory: Present: no symptoms reported. Absent: shortness of breath, cough , wheezing Cardiology: Present: no symptoms reported. Absent: chest pain, palpitations, edema Gastrointestinal/Abdominal: Present: no symptoms reported. Absent: nausea, vomiting, diarrhea Genitourinary: Present: no symptoms reported Musculoskeletal: Present: no symptoms reported. Absent: back pain, joint pain Skin: Present: no symptoms reported. Absent: rash, change in color Neurological: Present: headache, dizziness/light-headedness, seizure, weakness All Other Systems: All systems neg except as marked - Patient's Past Medical History Patient History - Medical: Anxiety, Bipolar, Chronic Pain, Hypothyroidism, Migraines, Obesity, Seizures, Other Patient History - Cardiac/Respiratory: Asthma Patient History - Cancer: No Hx of Cancer Patient History - Surgical Procedures: Cholecystectomy, , D & C, Hysterectomy, Other Patient History - Other: None LMP (Calendar): 08/30/14 - Family History Mother Family History - Medical: Anxiety, Diabetes Type 2, Depression, Renal Disease, Renal Failure Family History - Cardiac/Respiratory: Asthma Father Family History - Cardiac/Respiratory: Myocardial Infarction - Social History Living Situations: home Abuse History: No History of abuse Psych History: Hx of Anxiety Does anyone smoke in the home?: No Smoking Status: Current every day smoker Have you smoked in the past 12 months: Yes Alcohol Use: none Drug Use: none - Immunizations Immunizations Up to Date: Yes Hx Pneumococcal Vaccination: No History of Influenza Vaccine: More Information Required to Determine Physical Exam - Physical Exam General Appearance: Present: wd/wn, alert, no apparent distress Eye Exam: Normal inspection: bilateral, PERRL: bilateral, EOMI: bilateral Ears, Nose, Throat: Present: normal ENT inspection, normal pharynx Neck: Present: normal inspection, nontender. Absent: lymphadenopathy (R), lymphadenopathy (L) Respiratory: Present: no respiratory distress, normal breath sounds, no accessory muscle use, chest nontender, lungs clear Cardiovascular/Chest: Present: regular rate, rhythm, no murmur, normal peripheral pulses Gastrointestinal/Abdominal: Present: normal bowel sounds, nontender, nondistended, soft, no organomegaly Rectal Exam: Present: nontender, normal rectal tone Back Exam: Present: normal inspection, normal range of motion, no CVA tenderness , no vertebral tenderness Extremity Exam: Present: normal inspection, non-tender, normal range of motion, no edema Neurological Exam: Present: alert, oriented, normal mood/affect, no motor/ sensory deficits [place] Coma Scale - Assess Eye Opening: Spontaneous Motor: Obeys Commands Verbal: Oriented - Total Coma Scale Total: 15 Initial Stroke Assessment - Date/Time of assessment Stroke Scale Date: 09/13/16 - NIH Stroke Scale Level of Consciousness: Drowsy LOC Questions (Year and Age): Answers both correctly LOC Commands (open/close eyes/fist): Performs both correctly Lateral Gaze Paresis: None Visual Field Loss: No visual loss Facial Palsy: Normal movement Right Arm Motor (10 sec hold): No drift Left Arm Motor (10 sec hold): No drift Right Leg Motor (5 sec hold): No drift Left Leg Motor (5 sec hold): No drift Limb Ataxia (finger/nose heel/guzman): Absent Sensory Loss (pinprick arms/legs/face): No sensory loss Language Aphasia (description/naming/reading): Mild, yet understandable Dysarthria (speech clarity): Slurring, intelligeble Neglect Inattention (visual/tactile/auditory/spatial/person): No neglect Initial Stroke Scale Score:: 3 Stroke Inclusion/Exclusion Cri - Exclusion Questions: Major symptoms rapidly improving: No Seizure at onset of stroke: Yes SBP>185; DBP>110 at time treatment is to begin: No Patient received Heparin or Coumadin within 48 hours: No Patient has elevated PTT or Protime/INR: No Stroke, head injury, major surgery, serious trauma in 3 mon.: No Previous intracranial hemmorhage: No Recent VA: No Known AV malformation or aneurysm: No Blood glucose <50mg/dl or >400mg/dl: No NIHSS Score <4 or >22 performed by physician: Yes - Total NIHSS Score Score:: 3 ED Progress - Date and Time Seen: Date and Time: 09/13/16 15:07 As I cannot rule out posterior CVA without CT scan although I feel this is likely psuedoseizure activity. Pt. still c/o dizziness and she needs a head CT to rule out. Discussed with Dr Perry and he agrees. 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 Discussed with [facility] Dr Keller and he accepts transfer although he feels as I do that this is likely pseudoseizures. CT scan is down at this time or I would just perform CT at this facility. - Results and Orders Patient's Lab Results:: I have reviewed the patient's lab results. - Vital Signs Patient's Vital Signs:: I have reviewed the patient's vital signs. Vital Signs: Vital Signs 09/13/16 13:26 Temperature 36.3 C L Pulse Rate 67 Respiratory 12 Rate Blood Pressure 119/77 O2 Sat by Pulse 100 Oximetry - Progress/Reassessment Chief Complaint: Seizure Activity Departure Clinical Impression: Dizziness, Seizure - Departure Disposition: [facility] Condition: Fair
[2016-09-13 14:58] LABS: Cocaine Ur Negative (NEGATIVE); Urine Barbiturate Negative (NEGATIVE); Urine Benzodiazepines Negative (NEGATIVE); Urine Opiates Negative (NEGATIVE); Urine PCP Negative (NEGATIVE); Urine THC Negative (NEGATIVE)
[2016-09-13] MEDS ORDERED: MECLIZINE HCL 25 MG TABLET PO ONE (16:23)
[2016-09-13] MEDS ORDERED: MECLIZINE HCL 25 MG TABLET ONE (16:26)
[2016-09-13 16:54] VITALS: BP 115/73
== END 2016-09-13 17:01 | disposition short-term general hospital (02) ==
LOC: ER 13:22
DX: R56.9 Unspecified convulsions (principal); R42 Dizziness and giddiness; F17.210 Nicotine dependence, cigarettes, uncomplicated; F31.9 Bipolar disorder, unspecified; E03.9 Hypothyroidism, unspecified; F41.9 Anxiety disorder, unspecified

== ENCOUNTER 2016-11-19 18:11 | Emergency (ER) | payer OTHER ==
[2016-11-19] MEDS ORDERED: ONDANSETRON HCL/PF 2 MG/ML VIAL IV ONE (18:40)
[2016-11-19] MEDS ORDERED: NORMAL SALINE 1,000 ML IV ONE (18:40)
[2016-11-19] MEDS ORDERED: diphenhydrAMINE HCL 50 MG/ML VIAL IM ONE (18:40)
[2016-11-19] MEDS ORDERED: diphenhydrAMINE HCL 50 MG/ML VIAL ONE (18:44)
[2016-11-19] MEDS ORDERED: ONDANSETRON HCL/PF 2 MG/ML VIAL ONE (18:44)
[2016-11-19] MEDS ORDERED: diphenhydrAMINE HCL 50 MG/ML VIAL IV ONE (18:51)
[2016-11-19 19:01] LABS: Urine Bilirubin Negative (NEGATIVE); Urine Blood Negative /ul (NEGATIVE); Urine Ketone Negative (NEGATIVE); Urine Nitrite Negative (NEGATIVE); Urine Protein Negative (NEGATIVE); Urine Urobilinogen Normal (NORMAL); Urine pH 6.5 pH (5.0-7.0)
--- NOTE | 2016-11-19 19:03 | ERNOTE ---
Headache ER HPI - Narrative Date of Service: 11/19/16 - General Presenting Symptoms: headache Time Seen by Provider: 11/19/16 18:36 Source: patient Exam Limitations: no limitations - Immun/Allergies/Home Medications Immunizations: IMMUNIZATION HX Immunizations Up to Date Yes History of Influenza Vaccine No Hx Pneumococcal Vaccination No Allergies/Adverse Reactions: Allergies ketorolac tromethamine [From Toradol] Allergy (Verified 11/19/16 18:25) Itching topiramate [From Topamax] Adverse Reaction (Mild, Verified 11/19/16 18:25) BLACK SPOTS SEEN tramadol Adverse Reaction (Mild, Verified 11/19/16 18:25) RASH metoclopramide HCl [From Reglan] Adverse Reaction (Verified 11/19/16 18:25) Other Home Medications: HOME MEDICATIONS Levothyroxine Sodium [Synthroid] 125 mcg PO DAILY 12/05/14 [Last Taken 12/05/14 09:00] Divalproex Sodium [Depakote] 250 mg PO HS 09/13/16 [Last Taken Unknown] Furosemide [Lasix] 20 mg PO DAILY 09/13/16 [Last Taken Unknown] Gabapentin [Neurontin] 600 mg PO QID 09/13/16 [Last Taken Unknown] DULoxetine HCL [Cymbalta] 60 mg PO DAILY 11/17/16 [Last Taken Unknown] Potassium Chloride 10 meq PO BID 11/17/16 [Last Taken Unknown] clonazePAM [Klonopin] 2 mg PO BID 11/17/16 [Last Taken Unknown] Acetaminophen [Tylenol] 4 tab PO PRN PRN 11/19/16 [Last Taken 11/19/16 10:00] - History of Present Illness Narrative: Pt. comes in with c/o headache for four days. Pt. states that she was seen here and had a burning headache at that time and it was not resolved despite coming here for treatment. Review of Systems - Review of Systems Constitutional: Present: no symptoms reported EYE: Present: no symptoms reported. Absent: eye pain, eye discharge, blurred vision, double vision, vision changes ENT: Present: no symptoms reported Respiratory: Present: no symptoms reported Cardiology: Present: no symptoms reported. Absent: chest pain, palpitations, edema Gastrointestinal/Abdominal: Present: no symptoms reported Genitourinary: Present: no symptoms reported Musculoskeletal: Present: no symptoms reported. Absent: back pain, muscle pain , joint pain Skin: Present: no symptoms reported Neurological: Present: headache. Absent: anxiety, depressed, weakness, numbness All Other Systems: All systems neg except as marked - Patient's Past Medical History Patient History - Medical: Anxiety, Chronic Pain, Depression, Hypothyroidism, Migraines, Obesity, Seizures Patient History - Cardiac/Respiratory: Asthma Patient History - Cancer: No Hx of Cancer Patient History - Surgical Procedures: Cholecystectomy, , D & C, Hysterectomy, Other Patient History - Other: None LMP (Calendar): 08/30/14 - Family History Mother Family History - Medical: Anxiety, Diabetes Type 2, Depression, Renal Disease, Renal Failure Family History - Cardiac/Respiratory: Asthma Father Family History - Cardiac/Respiratory: Myocardial Infarction - Social History Living Situations: home Abuse History: No History of abuse Psych History: Hx of Anxiety, Hx of Depression, Current tx/ever been on anti- depressants or anti-anxiety meds Does anyone smoke in the home?: No Smoking Status: Current every day smoker Alcohol Use: occasionally Drug Use: none - Immunizations Immunizations Up to Date: Yes Hx Pneumococcal Vaccination: No History of Influenza Vaccine: No Physical Exam - Physical Exam General Appearance: Present: wd/wn, alert, no apparent distress Eye Exam: Normal inspection: bilateral, PERRL: bilateral, EOMI: bilateral Respiratory: Present: no respiratory distress, normal breath sounds, no accessory muscle use, chest nontender, lungs clear Cardiovascular/Chest: Present: regular rate, rhythm, no murmur, normal peripheral pulses Neurological Exam: Present: oriented, no motor/sensory deficits, other - lethargic acts drugged Skin Exam: Present: normal color, warm/dry ED Progress - Date and Time Seen: Date and Time: 11/19/16 18:52 Pt. previous records reviewed and feel that pt. is experiencing effects of marijuana at this time and that she needs to stop smoking this and take Benadryl for adverse effect until it resolves. 11/19/16 20:00 Discussed pt. results with her and she is denying any use of marijuana or benzo use or abuse. Pt. states that she looks stoned due to the benedryl and when I told her she looked that way previously she denied it and when I told her that it was unsafe to mix benzodiazepines and opiates she became angry and wanted to leave. Requested that pt. stay to get fluids as she was dehydrated. - Results and Orders Patient's Lab Results:: I have reviewed the patient's lab results. - Vital Signs Patient's Vital Signs:: I have reviewed the patient's vital signs. Vital Signs: Vital Signs 11/19/16 18:18 Temperature 36.5 C Pulse Rate 70 Respiratory 18 Rate Blood Pressure 111/83 O2 Sat by Pulse 100 Oximetry - Progress/Reassessment Chief Complaint: Headache Progress:: Unchanged Departure Clinical Impression: Adverse reaction to cannabis Qualifiers: Encounter type: initial encounter Qualified Code(s): T40.7X5A - Adverse effect of cannabis (derivatives), initial encounter - Departure Disposition: Home self-care Condition: Good Instructions: Cannabis Use Disorder Additional Instructions: Please follow up with primary provider and continue to take benedryl and tylenol 25mg and 1000 mg every 6 hours. Referrals: Salo oGnzales MD [Primary Care Provider] -
[2016-11-19 19:09] LABS: Cocaine Ur Negative (NEGATIVE); Urine Appearance Clear; Urine Bacteria None Seen; Urine Barbiturate Negative (NEGATIVE); Urine Color Yellow; Urine Opiates Negative (NEGATIVE); Urine PCP Negative (NEGATIVE); Urine RBC None Seen /hpf (0-5); Urine WBC None Seen /hpf (0-5)
[2016-11-19 19:12] LABS: Urine Benzodiazepines Positive (NEGATIVE); Urine THC Positive (NEGATIVE)
[2016-11-19 19:21] LABS: Hematocrit 38.4 % (37.0-47.0); Hemoglobin 13.1 gm/dL (12.5-16.0); Mean Corpuscular Hgb Conc 34.1 g/dl (32-36); Mean Platelet Volume 9.4 fl (6.0-9.5); Neutrophil # 3.6 K/mm3 (1.3-6.0); Neutrophil % 50.8 % (42-75.0); Platelet Count 227 K/mm3 (150-450); Red Blood Count 4.52 M/mm3 (4.2-5.4); Red Cell Distribution Width 12.1 % (11.5-14.0)
[2016-11-19 19:34] LABS: Albumin * 2.9 gm/dl (3.4-5.0); Anion Gap 15.4 mmol/L (6.8-13.8); BUN/Creatinine Ratio 27.5 (9.0-21.6); Bilirubin, Total 0.4 mg/dL (0.0-1.1); Ca. Corrected For Albumin 8.5 mg/dL (8.4-10.2); Calcium * 7.9 mg/dL (7.9-10.9); Carbon Dioxide 26.2 mmol/L (24-32.6); Potassium 3.6 mmol/L (3.4-4.6)
[2016-11-19 20:24] VITALS: BP 133/91
== END 2016-11-19 20:23 | disposition home or self-care (01) ==
LOC: ER 18:11
DX: T40.7X5A Adverse effect of cannabis (derivatives), initial encounter (principal); Z72.0 Tobacco use
CPT/HCPCS: 36415; 80053; 80307; 81001; 85025; 96374; 96375; 99284; J2405

== ENCOUNTER 2016-12-16 17:46 | Emergency (ER) | payer OTHER ==
--- NOTE | 2016-12-16 18:13 | ERNOTE ---
Upper Extremity HPI - Narrative Date of Service: 12/16/16 - General Extremities Pain Location: wrist: right Time Seen by Provider: 12/16/16 18:01 Source: patient, RN notes reviewed Exam Limitations: no limitations - Immun/Allergies/Home Medications Immunizations: IMMUNIZATION HX Immunizations Up to Date Yes History of Influenza Vaccine No Hx Pneumococcal Vaccination No Allergies/Adverse Reactions: Allergies Allergy/AdvReac Type Severity Reaction Status Date / Time ketorolac tromethamine Allergy Itching Verified 12/16/16 17:57 [From Toradol] topiramate [From Topamax] AdvReac Mild BLACK Verified 12/16/16 17:57 SPOTS SEEN tramadol AdvReac Mild RASH Verified 12/16/16 17:57 metoclopramide HCl AdvReac Other Verified 12/16/16 17:57 [From Reglan] Home Medications: HOME MEDICATIONS Levothyroxine Sodium [Synthroid] 125 mcg PO DAILY 12/05/14 [Last Taken 12/05/14 09:00] Divalproex Sodium [Depakote] 250 mg PO HS 09/13/16 [Last Taken Unknown] Furosemide [Lasix] 20 mg PO DAILY 09/13/16 [Last Taken Unknown] Gabapentin [Neurontin] 600 mg PO QID 09/13/16 [Last Taken Unknown] DULoxetine HCL [Cymbalta] 60 mg PO DAILY 11/17/16 [Last Taken Unknown] Potassium Chloride 10 meq PO BID 11/17/16 [Last Taken Unknown] clonazePAM [Klonopin] 2 mg PO BID 11/17/16 [Last Taken Unknown] Acetaminophen [Tylenol] 4 tab PO PRN PRN 11/19/16 [Last Taken 11/19/16 10:00] HYDROcodone/ACETAMINOPHEN [[place] 5-325] 1 - 2 tab PO Q6H PRN #20 tab 12/16/16 [ Last Taken Unknown] - History of Present Illness Narrative: 36 y/o female to ED by private vehicle for right wrist pain due to a fall while moving furniture. Occurred: just prior to arrival Location of Incident: home Method of Injury: Reports: fell Reason for Fall: Reports: tripped Loss of Consciousness: Reports: no loss of consciousness Associated Symptoms: Denies: tingling, weakness, numbness distally Other Injuries: Reports: none Review of Systems - Review of Systems Constitutional: Present: no symptoms reported EYE: Present: no symptoms reported ENT: Present: no symptoms reported Respiratory: Present: no symptoms reported Cardiology: Present: no symptoms reported Gastrointestinal/Abdominal: Present: no symptoms reported Genitourinary: Present: no symptoms reported Musculoskeletal: Present: joint pain, joint swelling. Absent: back pain, neck pain Skin: Absent: rash, lesions, change in color Neurological: Absent: weakness, numbness, tingling Endocrine: Present: no symptoms reported Hematologic/Lymphatic: Absent: easy bruising, easy bleeding Psych: Present: no symptoms reported - Patient's Past Medical History Patient History - Medical: Anxiety, Chronic Pain, Depression, Hypothyroidism, Migraines, Obesity, Seizures Patient History - Cardiac/Respiratory: Asthma Patient History - Cancer: No Hx of Cancer Patient History - Surgical Procedures: Cholecystectomy, , D & C, Hysterectomy, Other Patient History - Other: None LMP (females 10-50): other - Family History Mother Family History - Medical: Anxiety, Diabetes Type 2, Depression, Renal Disease, Renal Failure Family History - Cardiac/Respiratory: Asthma Father Family History - Cardiac/Respiratory: Myocardial Infarction - Social History Living Situations: home Abuse History: No History of abuse Psych History: Hx of Anxiety, Hx of Depression, Current tx/ever been on anti- depressants or anti-anxiety meds Does anyone smoke in the home?: No Alcohol Use: occasionally Drug Use: none - Immunizations Immunizations Up to Date: Yes Hx Pneumococcal Vaccination: No History of Influenza Vaccine: No Physical Exam - Physical Exam General Appearance: Present: wd/wn, alert, mild distress Head Exam: Present: normal inspection, no evidence of injury Neck: Present: normal inspection, nontender, supple Respiratory: Present: no respiratory distress, no accessory muscle use Cardiovascular/Chest: Present: normal peripheral pulses Peripheral Pulses: N=norm/S=strong/W=weak/B=bound/A=absent: Radial (R): Strong, Radial (L): Strong Extremity Exam: Present: decreased range of motion - Right wrist, bony tenderness - Right wrist, joint swelling - Right wrist Neurological Exam: Present: alert, oriented, normal mood/affect, no motor/ sensory deficits Skin Exam: Present: normal color, warm/dry ED Progress - Vital Signs Patient's Vital Signs:: I have reviewed the patient's vital signs. Vital Signs: Vital Signs 12/16/16 17:54 Temperature 37.2 C Pulse Rate 77 Respiratory 16 Rate Blood Pressure 123/88 O2 Sat by Pulse 100 Oximetry - X-Ray X-Ray #1 X-Ray: wrist Interpretation: Reviewed by me X-ray Comments: Technique: AP, lateral and oblique views of the right wrist compared to prior examination dated August 29, 2013. Findings: Only appreciated on the lateral view is fragmentation of what appears to be the triquetral bone. This cannot be confirmed on the other projections. There is soft tissue swelling overlying the bony fragments. IMPRESSION: FINDINGS SUGGESTIVE OF ACUTE TRIQUETRAL FRACTURE. CORRELATE FOR POINT TENDERNESS IN THIS REGION. Electronically signed by Carlos Leal D.O.. - Progress/Reassessment Chief Complaint: Upper Extremity Injury/Problem Progress:: Improved Procedures Location: Right wrist Pre-Proc Neuro Vasc Exam: normal Hand-Made Type: ocl Splint: short arm Alignment good: Yes Splint applied by: Nurse Post-Proc Neuro Vasc Exam: normal Complications: Pt lara procedure well Departure Clinical Impression: Triquetral fracture Qualifiers: Encounter type: initial encounter Fracture type: closed Fracture alignment: displaced Laterality: right Qualified Code(s): S62.111A - Displaced fracture of triquetrum [cuneiform] bone, right wrist, initial encounter for closed fracture - Departure Disposition: Home Follow Up Needed Condition: Stable Instructions: Wrist Fracture Treated With Immobilization, [id number], Form - Excuse from Work, School, or Physical Activity Additional Instructions: Leave splint in place Contact orthopedics tomorrow for follow up Ice and elevate Can take Tylenol for pain in place of [place] Referrals: Rome Esquivel MD [Staff Physician] - Prescriptions: HYDROcodone/ACETAMINOPHEN [[place] 5-325] 1 - 2 tab PO Q6H PRN #20 tab PRN Reason: Pain
[2016-12-16] MEDS ORDERED: HYDROcodone/ACETAMINOPHEN 1 EACH TABLET PO ONE (18:20)
[2016-12-16] MEDS ORDERED: HYDROcodone/ACETAMINOPHEN 1 EACH TABLET ONE (18:23)
[2016-12-16 19:19] VITALS: BP 142/88
== END 2016-12-16 19:01 | disposition home or self-care (01) ==
LOC: ER 17:46
PROC: 2W3CX1Z Immobilization of Right Lower Arm using Splint (ICD-10-PCS; principal; 2016-12-16)
DX: S62.111A Displaced fracture of triquetrum [cuneiform] bone, right wrist, initial encounter for closed fracture (principal); W01.0XXA Fall on same level from slipping, tripping and stumbling without subsequent striking against object, initial encounter; Y93.E9 Activity, other interior property and clothing maintenance; Y92.009 Unspecified place in unspecified non-institutional (private) residence as the place of occurrence of the external cause